=== PATIENT | female | born 1970 | race Caucasian/White ===

== ENCOUNTER 2017-03-04 10:00 | Day surgery (SDC) | payer BC ==
[~2017-03-04] VITALS: Ht 165.1 cm; Wt 106.8 kg
[~2017-03-04 10:00] MED LIST: ALEV220T26 PO; ALLE180T33 PO; BACL10TA2; CART120C; ESTR1TAB; GABA-279; GABA-282; LORA10TA2 PO; MULT1TAB10 PO; TRAM50TA2 PO; TYLE500T78 PO; VITA1CAP7 PO
[2017-03-04] MEDS ORDERED: LR 1,000 ML IV ONE (10:30)
[2017-03-04] MEDS ORDERED: SCOPOLAMINE 1MG TRANSDERMAL PATCH TOP ONE (13:30)
[2017-03-04] MEDS ORDERED: SODIUM CHLORIDE 0.9% NASAL GEL 15MG (AYR) As Ordered ONE (13:36)
[2017-03-04] MEDS ORDERED: METHYLENE BLUE 0.5% (5MG/ML) 10 ML AMP (PROVAYBLUE)(Q9968 PER 1MG) As Ordered ONE (13:36)
[2017-03-04] MEDS ORDERED: EPINEPHrine 1MG/ML INJ 30ML MD-VIAL As Ordered ONE (13:37)
[2017-03-04] MEDS ORDERED: LIDOCAINE W/EPINEPHRINE 1% 20ML VIAL As Ordered ONE (13:37)
[2017-03-04] MEDS ORDERED: MIDAZOLAM INJ 2 MG/2 ML VIAL (J2250) As Ordered ONE (13:52)
[2017-03-04] MEDS ORDERED: fentaNYL 100 MCG/2 ML INJECTION (J3010) As Ordered ONE ×2 (13:52→14:50)
[2017-03-04] MEDS ORDERED: PROPOFOL 200 MG/20 ML VIAL As Ordered ONE ×2 (14:20→14:46)
[2017-03-04] MEDS ORDERED: SUCCINYLCHOLINE 100 MG/5 ML SYRINGE (J0330) As Ordered ONE (14:20)
[2017-03-04] MEDS ORDERED: HYDROmorphone HCL 2 MG/ML 1ML VIAL (J1170) As Ordered ONE (14:20)
[2017-03-04] MEDS ORDERED: ONDANSETRON 4MG/2ML VIAL (J2405) As Ordered ONE (14:21)
[2017-03-04] MEDS ORDERED: LIDOCAINE 2% INJ 100 MG/5 ML SDV (FOR ANES.) As Ordered ONE (14:23)
[2017-03-04] MEDS ORDERED: ROCURONIUM BROMIDE 50 MG/5 ML VIAL As Ordered ONE (14:23)
[2017-03-04] MEDS ORDERED: LABETALOL HCL 100 MG/20 ML VIAL As Ordered ONE (14:51)
[2017-03-04] MEDS ORDERED: OXYMETAZOLINE NASAL SPRAY (AFRIN) As Ordered ONE (15:26)
[2017-03-04] MEDS ORDERED: ONDANSETRON 4MG/2ML VIAL (J2405) IV PRN (15:30)
[2017-03-04] MEDS ORDERED: fentaNYL 100 MCG/2 ML INJECTION (J3010) IV PRN (15:30)
[2017-03-04] MEDS ORDERED: NORCO, ANEXSIA 5/325MG TABLET (HYDROcodone/ACETAMINOPHEN) PO PRN (15:30)
[2017-03-04] MEDS ORDERED: LR 1,000 ML IV SCH (15:30)
--- NOTE | 2017-03-04 15:51 | ROOPDOC ---
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 POSTPROCEDURE DIAGNOSES: [Same with josh pus from the right maxillary sinus obtained.]. PROCEDURE: [Right endoscopic maxillary sinusotomy utilizing Acclarent balloon device and copious irrigation of purulent discharge from the right maxillary sinus. Also biopsy of right oral antral fistula granulation tissue]. SURGEON: [Maurilio Sahu Jr], TREASURY MANAGER: [None], MD ANESTHESIA: [Gen. via endotracheal tube.]. ESTIMATED BLOOD LOSS: Approximately [5] mL. COMPLICATIONS: [None]. REMARKS: [Josh pus obtained from the right maxillary balloon sinusotomy site with copious pus irrigated out. It was cultured for aerobic, anaerobic, fungal and also sent for Gram stain.]. PROCEDURE NOTE: [The patient in the supine position after being induced and intubated, prepped and draped in the usual fashion. The nasal cavity was decongested with Afrin soaked pledgets. Approximately 3 mL of 1% lidocaine, 1- 100,000 epinephrine was injected at the base of the uncinate also anterior face of the middle meatus. The Afrin-soaked pledgets were then placed in the middle meatus. The inferior turbinate was outfractured. The middle turbinate was medialized. A seeker was used to identify the natural ostium. There was bowing of the medial antral area and what appeared to be possible granulation tissue present as well. The Acclarent balloon with the Ngoc device was used to cannulate the right natural ostium in the maxillary sinus was positively identified as being cannulated with a going towards the lateral aspect of the cheek and then only the maxillary sinus opening area illuminated which did move easily. Then the catheter was placed and dilated to 8 cm of water and josh pus came out, as well as eventually to 10 cm mobile dilations were performed. Cultures were sent for aerobic, anaerobic and fungal as well as Gram stain. The maxillary sinus was copiously irrigated with saline. Approximately 250 mL until there was no more pus and it was clear. Small biopsy was done of the granulation tissue near the oral antral fistula site and pressure was placed to stop the bleeding. At this point control. The patient was turned back over to the public health engineer. There is no problems and no complications. All counts were correct. Unable to view all of the maxillary mucosa due to severe granulation tissue present.]. DESCRIPTION OF PROCEDURE: [Right balloon sinuplasty with copious irrigation and cultures with biopsy of oral antral fistula site.]. MAURILIO SAHU MD Mar 04, 2017 15:51
[2017-03-04] MEDS ORDERED: METOCLOPRAMIDE INJ 10MG/2ML VIAL (J2765) As Ordered ONE (15:56)
[2017-03-04] MEDS ORDERED: METOCLOPRAMIDE INJ 10MG/2ML VIAL (J2765) IV PRN (16:00)
[2017-03-04] MEDS ORDERED: PROMETHAZINE INJ 25 MG/ML VIAL (J2550) IV PRN (16:00)
[2017-03-04] MEDS ORDERED: PROMETHAZINE INJ 25 MG/ML VIAL (J2550) As Ordered ONE (19:16)
[2017-03-04 20:35] VITALS: BP 150/80
== END 2017-03-04 20:47 | disposition home or self-care (01) ==
LOC: M SDC 10:00
PROVIDERS: ATTEND Otolaryngology
DX: J32.0 Chronic maxillary sinusitis (principal); K08.409 Partial loss of teeth, unspecified cause, unspecified class; I10 Essential (primary) hypertension; J45.909 Unspecified asthma, uncomplicated; Z88.0 Allergy status to penicillin; M79.7 Fibromyalgia; F41.9 Anxiety disorder, unspecified; M19.90 Unspecified osteoarthritis, unspecified site; Z79.899 Other long term (current) drug therapy; Z79.1 Long term (current) use of non-steroidal anti-inflammatories (NSAID)
CPT/HCPCS: 31237; 31295; 87070; 87075; 87102; 87205; 88305; J0330; J1170; J2250; J2405; J2765; J3010; Q9968

== ENCOUNTER → 2017-03-31 | Outpatient (REF) | payer BC | LOC: M LAB REF 12:14 | DX: J32.0 Chronic maxillary sinusitis (principal) | CPT/HCPCS: 87205 ==

== ENCOUNTER → 2017-04-20 | Outpatient (REF) | payer BC | LOC: M LAB REF 12:06 | DX: K12.39 Other oral mucositis (ulcerative) (principal) | CPT/HCPCS: 88305; 88312 ==

== ENCOUNTER → 2017-05-18 | Outpatient (REF) | payer BC | LOC: M LAB REF 14:57 | DX: J01.00 Acute maxillary sinusitis, unspecified (principal); J32.0 Chronic maxillary sinusitis | CPT/HCPCS: 88305 ==

== ENCOUNTER → 2017-05-23 | Outpatient (CLI) | payer BC | LOC: M RAD 08:31 | DX: J32.0 Chronic maxillary sinusitis (principal) ==

== ENCOUNTER 2017-08-05 11:02 | Day surgery (SDC) | payer BC ==
[2017-08-05] MEDS: LR 1,000 ML IV ×2 (12:25)
[2017-08-05] MEDS: SCOPOLAMINE 1MG TRANSDERMAL PATCH TOP ×2 (12:50)
[2017-08-05] MEDS ORDERED: PROPOFOL 200 MG/20 ML VIAL As Ordered ×16 (14:53→16:02)
[2017-08-05] MEDS ORDERED: dexameTHASONE 4 MG/ML 1ML VIAL (J1100) As Ordered ×4 (14:53→14:54)
[2017-08-05] MEDS ORDERED: MIDAZOLAM INJ 2 MG/2 ML VIAL (J2250) As Ordered ×2 (14:53)
[2017-08-05] MEDS ORDERED: fentaNYL 100 MCG/2 ML INJECTION (J3010) As Ordered ×2 (14:53)
[2017-08-05] MEDS ORDERED: ROCURONIUM BROMIDE 50 MG/5 ML VIAL As Ordered ×2 (14:53)
[2017-08-05] MEDS ORDERED: ONDANSETRON 4MG/2ML VIAL (J2405) As Ordered ×2 (14:54)
[2017-08-05] MEDS ORDERED: METOCLOPRAMIDE INJ 10MG/2ML VIAL (J2765) As Ordered ×2 (14:54)
[2017-08-05] MEDS ORDERED: GLYCOPYRROLATE INJ 0.2 MG/ML 2 ML VIAL As Ordered ×4 (15:03)
[2017-08-05] MEDS ORDERED: NEOSTIGMINE 10 MG/10 ML VIAL (J2710) As Ordered ×2 (15:03)
[2017-08-05] MEDS ORDERED: PROMETHAZINE INJ 25 MG/ML VIAL (J2550) As Ordered ×2 (15:40)
[2017-08-05] MEDS ORDERED: DESFLURANE 240 ML INHALANT As Ordered ×2 (15:40)
[2017-08-05] MEDS: LIDOCAINE W/EPINEPHRINE 1% 20ML VIAL As Ordered ×2 (16:25)
[2017-08-05] MEDS: OXYMETAZOLINE NASAL SPRAY (AFRIN) As Ordered ×4 (16:26)
[2017-08-05] MEDS: METHYLENE BLUE 0.5% (5MG/ML) 10 ML AMP (PROVAYBLUE)(Q9968 PER 1MG) As Ordered ×2 (16:26)
[2017-08-05] MEDS ORDERED: fentaNYL 100 MCG/2 ML INJECTION (J3010) IV ×2 (17:00)
[2017-08-05] MEDS ORDERED: ONDANSETRON 4MG/2ML VIAL (J2405) IV ×2 (17:00)
[2017-08-05] MEDS ORDERED: NORCO, ANEXSIA 5/325MG TABLET (HYDROcodone/ACETAMINOPHEN) PO ×2 (17:00)
[2017-08-05] MEDS ORDERED: LR 1,000 ML IV ×2 (17:00)
== END 2017-08-05 19:40 | disposition home or self-care (01) ==
LOC: M SDC 11:02
DX: J32.0 Chronic maxillary sinusitis (principal); K11.4 Fistula of salivary gland; I10 Essential (primary) hypertension; G47.30 Sleep apnea, unspecified; J45.909 Unspecified asthma, uncomplicated; F41.9 Anxiety disorder, unspecified; M79.7 Fibromyalgia; Z79.899 Other long term (current) drug therapy; Z88.1 Allergy status to other antibiotic agents; Z88.0 Allergy status to penicillin; Z88.5 Allergy status to narcotic agent; Z88.9 Allergy status to unspecified drugs, medicaments and biological substances
CPT/HCPCS: 31267